=== PATIENT | male | born 1960 | race Caucasian/White ===

== ENCOUNTER 2017-07-08 15:01 | Emergency (ER) | payer SELFPAY ==
[2017-07-08 16:44] LABS: BASOPHILS 0.4 % (0-2); EOSINOPHILS 3.2 % (0-7); HEMATOCRIT 38.1 % (42.0-54.0); HEMOGLOBIN 13.6 g/dL (13.5-17.5); IMMATURE GRANULOCYTES 0.1 % (0-5); LYMPHOCYTES 36.5 % (15-50); MCH 31.5 pg (26.0-34.0); MCHC 35.7 g/dL (31.0-37.0); MCV 88.2 fL (80.0-100.0); MONOCYTES 11.1 % (2-11); NEUTROPHILS 48.7 % (40-80); PLATELET COUNT 210 10x3/uL (130-400); RBC 4.32 10x6/uL (4.20-6.10); RDW 12.3 % (11.5-14.5); WBC 7.3 10x3/uL (4.8-10.8)
[2017-07-08 17:03] LABS: ANION GAP 12.7 mmol/L (8-16); CALCIUM 8.5 mg/dL (8.5-10.1); CARBON DIOXIDE 23.3 mmol/L (21.0-32.0); CREATININE - SERUM 1.1 mg/dL (0.6-1.3); URIC ACID 2.9 mg/dL (2.6-7.2)
== END 2017-07-08 18:21 | disposition home or self-care (01) ==
LOC: D.ER 15:01
PROVIDERS: Nurse Practitioner Acute Care
DX: M25.461 Effusion, right knee (principal); E11.8 Type 2 diabetes mellitus with unspecified complications; Z91.19 Patient's noncompliance with other medical treatment and regimen; F17.200 Nicotine dependence, unspecified, uncomplicated

== ENCOUNTER 2017-07-29 13:50 | Emergency (ER) | payer MEDICAID ==
[2017-07-29 14:17] LABS: BASOPHILS 0.3 % (0-2); HEMATOCRIT 41.6 % (42.0-54.0); HEMOGLOBIN 14.7 g/dL (13.5-17.5); IMMATURE GRANULOCYTES 0.2 % (0-5); LYMPHOCYTES 33.6 % (15-50); MCH 30.8 pg (26.0-34.0); MCHC 35.3 g/dL (31.0-37.0); MCV 87.2 fL (80.0-100.0); MEAN PLATELET VOLUME 9.9 fL (7.4-10.4); NEUTROPHILS 49.9 % (40-80); RBC 4.77 10x6/uL (4.20-6.10); RDW 12.2 % (11.5-14.5); WBC 6.4 10x3/uL (4.8-10.8)
[2017-07-29 14:40] LABS: ALKALINE PHOSPHATASE 113 U/L (46-116); ALT (SGPT) 25 U/L (10-68); BILIRUBIN - TOTAL 0.24 mg/dL (0.2-1.3); CALC OSMOLALITY 284 mosm/kg (275-300); CALCIUM 9.2 mg/dL (8.5-10.1); CARBON DIOXIDE 26.9 mmol/L (21.0-32.0); CHLORIDE - SERUM 100 mmol/L (98-107); POTASSIUM - SERUM 4.1 mmol/L (3.5-5.1); PROTEIN - SERUM 7.1 g/dL (6.4-8.2); SODIUM 135 mmol/L (136-145); UREA NITROGEN 20 mg/dL (7-18); eGFR NON AFRICAN AMERICAN 82 mL/min (90-120)
[2017-07-29 14:43] LABS: GLUCOSE 308 mg/dL (74-106)
[2017-07-29 14:45] LABS: PLATELET COUNT 291 10x3/uL (130-400)
[2017-07-29 14:47] LABS: CHOL - HDL RATIO 8.7 ratio (2.3-4.9); CHOLESTEROL, TOTAL 278 mg/dL (0-200); CREATINE KINASE 33 UL (21-232); HDL CHOLESTEROL 32 mg/dL (32-96); LDL CHOLESTEROL 190 mg/dL (0-100); LDL-HDL RATIO 5.9 ratio (1.5-3.5); TRIGLYCERIDE 284 mg/dL (30-200)
[2017-07-29 14:48] LABS: TROPONIN-I < 0.017 ng/mL (0.000-0.060)
== END 2017-07-29 15:41 | disposition home or self-care (01) ==
LOC: D.ER 13:50
PROVIDERS: Family Medicine
DX: R07.89 Other chest pain (principal); E11.65 Type 2 diabetes mellitus with hyperglycemia; I10 Essential (primary) hypertension; F17.200 Nicotine dependence, unspecified, uncomplicated

== ENCOUNTER 2017-12-31 07:33 | Emergency (ER) | payer SELFPAY | END 2017-12-31 09:21 | disposition home or self-care (01) | LOC: D.ER 07:33 | DX: M25.521 Pain in right elbow (principal); M77.9 Enthesopathy, unspecified; H72.91 Unspecified perforation of tympanic membrane, right ear; H66.91 Otitis media, unspecified, right ear; E11.9 Type 2 diabetes mellitus without complications; I10 Essential (primary) hypertension ==

== ENCOUNTER 2018-02-28 19:20 | Emergency (ER) | payer MEDICAID | END 2018-02-28 22:15 | disposition home or self-care (01) | LOC: D.ER 19:20 | DX: B00.1 Herpesviral vesicular dermatitis (principal); E11.9 Type 2 diabetes mellitus without complications; F17.200 Nicotine dependence, unspecified, uncomplicated ==